=== PATIENT | female | born 1970 | race Caucasian/White ===

== ENCOUNTER 2023-10-14 10:07 | Emergency (ER) | payer OTHER, SELFPAY ==
[2023-10-14] VITALS (89 sets, daily range): BP systolic 105–151; BP diastolic 50–122; PULSE 82–96; RESP 15–20; TEMP 37.4; O2SAT 91–99
--- NOTE | ~2023-10-14 | CT_ITS ---
CT abdomen pelvis w con Ordering provider: Bandar Perez MD History: 53 years Female with . severe abdominal pain-LUQ X1DAY . Comparison: None. Technique: CT abdomen and pelvis with IV and without oral contrast. Automated exposure control and it erative reconstruction technique were employed. The dose-length product was 776.75 mGy-cm. 100 mL Omn ipaque 350 was given IV. Findings: VISUALIZED LOWER CHEST: Dependent atelectatic changes. UPPER ABDOMINAL ORGANS: Liver: Normal. Dilated CBD and intrahepatic ducts. The CBD measures 0.9 CNM. Gallbladder: Status post cholecystectomy. Spleen: Normal. Stomach/duodenum: Sliding hiatus hernia with postoperative changes. Minimal fluid seen adjacent to th e stomach in the right side. There are also seen in the adjacent fat. Pancreas: Normal. Slightly prominent pancreatic duct. Adrenals: Normal. Kidneys: Tiny cyst seen in the left kidney midpole. PELVIC ORGANS: The bladder is normal. BOWEL AND MESENTERY: Colon: Mild sigmoid diverticulosis without diverticulitis. Status post appendectomy. Small Bowel: Normal. No obstruction. Peritoneum/mesentery: No free air. Minimal free fluid is seen around the liver. No mesenteric lymphad enopathy. RETROPERITONEUM: Mild atheromatous disease of the abdominal aorta. No retroperitoneal lymphadenopat hy. MUSCULOSKELETAL: Superficial soft tissues: Umbilical hernia with fat content. Otherwise, The superficial soft tissues are normal. Bones: Age appropriate degenerative changes of the spine. Postoperative changes in the lower lumbar a [place]. Bilateral sacroiliacs. IMPRESSION: 1. Free air in the abdomen. This may be postoperative or congenital to perforation may be in the sto mach area. Minimal fluid in adjacent to the stomach on the left side. 2. Slightly dilated CBD with slightly dilated intrahepatic ducts. 3. Postoperative changes in the stomach. Reviewed, dictated and finalized at location A. IMPRESSION: 1. Free air in the abdomen. This may be postoperative or congenital to perfora tion may be in the stomach area. Minimal fluid in adjacent to the stomach on th e left side. 2. Slightly dilated CBD with slightly dilated intrahepatic ducts. 3. Postoperative changes in the stomach.
[2023-10-14] MEDS: SODIUM CHLORIDE 0.9% IV 1,000 ML 999 ML IV CONT (10:31)
[2023-10-14] MEDS: ONDANSETRON INJ 4 MG/2 ML VIAL IV PUSH (10:33)
[2023-10-14] MEDS: MORPHINE SULFATE (*CRX) 4 MG/ML INJ IV PUSH (10:35)
[2023-10-14 10:45] LABS: Basophils Absolute Auto 0.04 K/mm3 (0.00-0.10); Basophils Percent Auto 0.3 % (0.0-1.0); Eosinophils Absolute Auto 0.03 K/mm3 (0.02-0.50); Eosinophils Percent Auto 0.2 % (1.0-6.0); Hematocrit 39.3 % (35.0-49.0); Hemoglobin 13.3 g/dL (12.0-15.0); Immature Granulocyte Absolute 0.07 K/mm3 (0.00-0.00); Immature Granulocyte Percent A 0.5 % (0.0-0.0); Lymphocytes Absolute Auto 0.93 K/mm3 (1.10-4.50); Lymphocytes Percent Auto 6.3 % (18.0-42.0); Mean Corpuscular HGB Conc 33.8 g/dL (32-36); Mean Corpuscular Hemoglobin 28.7 pg (27.0-31.0); Mean Corpuscular Volume 84.7 fL (78.0-102.0); Mean Platelet Volume 13.1 fl (9.2-11.8); Monocytes Absolute Auto 0.71 K/mm3 (0.10-0.90); Monocytes Percent Auto 4.8 % (2.0-11.0); Neutrophils Absolute Auto 12.94 K/mm3 (1.70-7.20); Neutrophils Percent Auto 87.9 % (50.0-70.0); Platelet Count Result 148 K/mm3 (150-420); Red Blood Count 4.64 M/mm3 (4.20-5.40); Red Cell Distribution Width 12.6 % (11.6-14.4); White Blood Count 14.7 K/mm3 (4.8-10.8)
[2023-10-14 11:01] LABS: Alanine Aminotransferase 23 U/L (14-59); Alkaline Phosphatase 75 U/L (46-116); Anion Gap 6 mmol/L (4-12); Aspartate Amino Transferase 28 U/L (15-37); Blood Urea Nitrogen 11 mg/dL (7-18); Calcium 9.5 mg/dL (8.5-10.1); Carbon Dioxide 30 mmol/L (21-32); Chloride 103 mmol/L (98-108); Estimated CRCL calculation 90 ml/min; Estimated Glomerular Filt Rate > 60; Glucose 95 mg/dL (70-99); Lipase 27 U/L (16-77); Osmolality Calculated 287 mOsm/kg (285-295); Potassium 3.9 mmol/L (3.5-5.1); Sodium 139 mmol/L (136-145); Total Protein 7.3 g/dL (6.4-8.2)
[2023-10-14 11:04] LABS: Lactic Acid Reflex 1.3 mmol/L (0.4-2.0)
--- NOTE | 2023-10-14 11:12 | PC.NURSE ---
Patient taken down to CT.
--- NOTE | 2023-10-14 11:32 | PC.NURSE ---
Patient back in room from CT.
[2023-10-14 11:41] LABS: Appearance Urine Clear (Clear); Bilirubin Urine Negative (Negative); Blood Urine Negative (Negative); Color Urine Yellow (Yellow); Glucose Urine UA Negative (Negative); Ketones Urine Negative (Negative); Leukocyte Esterase Ur Negative LEU/UL (Negative); Nitrate Urine Negative (Negative); Protein Urine Negative (Negative); Specific Grav Ur 1.015 (1.010-1.020); Urobilinogen Urine 0.2 mg/dL (0.2-1.0)
[2023-10-14 11:46] LABS: Add Urine Microscopic? NO
--- NOTE | 2023-10-14 12:07 | ED.ABDPAIN ---
HPI - Abdominal Pain General Chief Complaint: Abdominal Pain Stated Complaint: abd pain Time Seen by Provider: 10/14/23 10:14 Source: patient Mode of arrival: EMS History of Present Illness HPI narrative: Patient is a 53-year-old female with significant past medical history who presents today with abdominal pain. Patient states she has severe abdominal pain on the left lower quadrant. She states this pain started 3 days ago. A continued to get worse. She states there was no inciting event. Her last bowel movement was on Friday. She has history of multiple multiple GI surgeries. His include a cholecystectomy, appendectomy gastric sleeve surgery x2, And a few other history she does not remember exactly what they are. She most likely has multiple adhesions in the abdomen and pelvis area from all of these surgeries. She is a stay pain is a 10/10. Patient has and denies any blood in her stools. MD elicited complaint: abdominal pain Related Data Home Medications Medication Instructions Recorded Confirmed No Home Medications 10/14/23 10/14/23 Allergies Allergy/AdvReac Type Severity Reaction Status Date / Time No Known Allergies Allergy Unverified 10/14/23 10:14 [facility] Social History Social History Alcohol intake: never Course Reevaluation(s) Reevaluation #1: Spoke with surgeon at [place] about the free air and possible perforation found on CT scan and he recommended her go where there is a bariatric surgeon especially the one she originally had the surgery from. Date: 10/14/23 Time: 12:35 Reevaluation #2: Spoke with Dr. Aleln her gastric surgeon and she will accept her at [facility] for a transfer. Date: 10/14/23 Time: 14:44 Vital Signs Vital signs: Vital Signs Temperature 99.4 F 10/14/23 10:07 Pulse Rate 90 10/14/23 10:07 Respiratory Rate 20 10/14/23 10:07 Blood Pressure 131/90 10/14/23 10:07 Pulse Oximetry 98 10/14/23 10:07 Oxygen Delivery Room Air 10/14/23 10:07 Temperature 99.4 F 10/14/23 10:07 Pulse Rate 87 10/14/23 17:15 Respiratory Rate 16 10/14/23 17:15 Blood Pressure 122/72 10/14/23 22:01 Pulse Oximetry 92 10/14/23 22:30 Oxygen Delivery Room Air 10/14/23 10:07 Transfer Transfered to: Other ([facility]) Transportation: BLS Transfer rationale: needs surgery higher level of care Accepting physician: Dr. Allen [facility] - Abdominal Pain Lab Data 10/14/23 10:37 10/14/23 10:37 Labs: Lab Results 10/14/23 10/14/23 Range/Units 10:37 11:38 WBC 14.7 H (4.8-10.8) K/mm3 RBC 4.64 (4.20-5.40) M/mm3 Hgb 13.3 (12.0-15.0) g/dL Hct 39.3 (35.0-49.0) % MCV 84.7 (78.0-102.0) fL MCH 28.7 (27.0-31.0) pg MCHC 33.8 (32-36) g/dL RDW 12.6 (11.6-14.4) % Plt Count 148 L (150-420) K/mm3 MPV 13.1 H (9.2-11.8) fl Immature Gran % (Auto) 0.5 H (0.0-0.0) % Neut % (Auto) 87.9 H (50.0-70.0) % Lymph % (Auto) 6.3 L (18.0-42.0) % Fleming % (Auto) 4.8 (2.0-11.0) % Eos % (Auto) 0.2 L (1.0-6.0) % Baso % (Auto) 0.3 (0.0-1.0) % Lymph # (Auto) 0.93 L (1.10-4.50) K/mm3 Fleming # (Auto) 0.71 (0.10-0.90) K/mm3 Eos # (Auto) 0.03 (0.02-0.50) K/mm3 Baso # (Auto) 0.04 (0.00-0.10) K/mm3 Abs Immat Gran (auto) 0.07 H (0.00-0.00) K/mm3 Absolute Neuts (auto) 12.94 H (1.70-7.20) K/mm3 Absolute Nucleated RBC 0.00 (0.00-0.00) K/mm3 Nucleated RBC % 0.0 (0-0.0) % Sodium 139 (136-145) mmol/L Potassium 3.9 (3.5-5.1) mmol/L Chloride 103 (98-108) mmol/L Carbon Dioxide 30 (21-32) mmol/L Anion Gap 6 (4-12) mmol/L BUN 11 (7-18) mg/dL Creatinine 0.58 (0.55-1.02) mg/dL Estim Creat Clear Calc 90 ml/min Estimated GFR > 60 (59 - ) Glucose 95 (70-99) mg/dL Calculated Osmolality 287 (285-295) mOsm/kg Lactic Acid 1.3 (0.4-2.0) mmol/L Calcium 9.5 (8.5-10.1) mg/dL Total Bilirubin 1.0 (0.00-1.00) mg/dL AST 28 (15-37) U/L ALT
[2023-10-14] MEDS: SODIUM CHLORIDE 0.9% IV 1,000 ML 125 ML IV CONT (12:53)
[2023-10-14] MEDS: MORPHINE SULFATE (*CRX) 2 MG/ML INJ IV PUSH (12:54)
[2023-10-14] MEDS: HYDROmorphone HCL INJ (*CRX) 2 MG/ML VIAL 0.5 MG IV PUSH (13:35)
[2023-10-14] MEDS: PIPERACILLN/TAZ 3.375GM/NS50ML 3.375 GM/50 ML BAG IVPB (15:05)
--- NOTE | 2023-10-14 15:10 | PC.NURSE ---
patient asleep on stretcher at this time. at bedside. Update on status of transfer
[2023-10-14] MEDS: SODIUM CHLORIDE 0.9% IV 1,000 ML 125 ML (20:28)
[2023-10-15] VITALS (31 sets, daily range): BP systolic 118–155; BP diastolic 70–79; PULSE 92–95; RESP 18; TEMP 36.3–37.4; O2SAT 91–95
--- NOTE | 2023-10-15 02:30 | PC.NURSE ---
Pt did not want to keep BP cuff on. Reports it is uncomfortable and she would like to rest.
[2023-10-15] MEDS: SODIUM CHLORIDE 0.9% IV 1,000 ML 125 ML IV CONT (04:16)
--- NOTE | 2023-10-15 06:11 | PC.NURSE ---
[facility] contacted regarding bed update and reported that due to situation at hospital regarding power issues that they felt pt should go to [place]. Reported they were not currently doing surgery and it would be a quite awhile before they had a bed probably days . [facility] was also contacted and updated report given. [facility] reports they are working on discharges and in house admits, that they are currently delayed due to weather yesterday. Will keep patient on list for bed.
--- NOTE | 2023-10-15 07:38 | PC.NURSE ---
[facility] notified of pt c/o of nausea. erp states he will review the MAR and place some med orders for today.
[2023-10-15] MEDS: ONDANSETRON INJ 4 MG/2 ML VIAL IV PUSH (08:05)
[2023-10-15] MEDS: PIPERACILLN/TAZ 3.375GM/NS50ML 3.375 GM/50 ML BAG IVPB (08:10)
[2023-10-15 10:03] LABS: Hematocrit 34.7 % (35.0-49.0); Hemoglobin 11.7 g/dL (12.0-15.0); Mean Corpuscular HGB Conc 33.7 g/dL (32-36); Mean Corpuscular Hemoglobin 28.5 pg (27.0-31.0); Mean Corpuscular Volume 84.6 fL (78.0-102.0); Mean Platelet Volume 12.1 fl (9.2-11.8); Platelet Count Result 126 K/mm3 (150-420); Red Cell Distribution Width 12.6 % (11.6-14.4); White Blood Count 12.3 K/mm3 (4.8-10.8)
--- NOTE | 2023-10-15 10:03 | PC.NURSE ---
all ct images transmitted to [facility], [facility], [facility], and [facility]
[2023-10-15 10:18] LABS: Alanine Aminotransferase 131 U/L (14-59); Albumin Level 3.1 g/dL (3.4-5.0); Alkaline Phosphatase 123 U/L (46-116); Anion Gap 8 mmol/L (4-12); Aspartate Amino Transferase 85 U/L (15-37); Bilirubin,Total 2.1 mg/dL (0.00-1.00); Blood Urea Nitrogen 6 mg/dL (7-18); Calcium 8.7 mg/dL (8.5-10.1); Carbon Dioxide 26 mmol/L (21-32); Chloride 103 mmol/L (98-108); Estimated CRCL calculation 93 ml/min; Estimated Glomerular Filt Rate > 60; Glucose 93 mg/dL (70-99); Osmolality Calculated 281 mOsm/kg (285-295); Potassium 3.6 mmol/L (3.5-5.1); Sodium 137 mmol/L (136-145); Total Protein 6.4 g/dL (6.4-8.2)
[2023-10-15 10:21] LABS: Lactic Acid Reflex 0.9 mmol/L (0.4-2.0)
--- NOTE | 2023-10-15 10:35 | PC.NURSE ---
all transfer centers except [facility] contacted to remove from bed wait list
== END 2023-10-15 10:42 | disposition short-term general hospital (02) ==
PROVIDERS: Internal Medicine Critical Care Medicine; Emergency Provider Family Medicine
DX: K95.89 Other complications of other bariatric procedure (principal); Z90.3 Acquired absence of stomach [part of]
CPT/HCPCS: 36415; 74177; 80053; 81003; 83605; 83690; 85025; 85027; 96361; 96365; 96375; 96376; 99285; J1170; J2270; J2405; J2543; J7030; Q9967